=== PATIENT | male | born 1955 | race Caucasian/White ===

== ENCOUNTER 2018-06-13 10:30 | Emergency (ER) | payer BC ==
[~2018-06-13] VITALS: Ht 182.9 cm; Wt 111.6 kg
[2018-06-13 10:39] VITALS: Ht 182.9 cm; Wt 111.6 kg
[2018-06-13 15:40] VITALS: BP 157/77
== END 2018-06-13 15:40 | disposition home or self-care (01) ==
LOC: ED 10:30
DX: S61.211A Laceration without foreign body of left index finger without damage to nail, initial encounter (principal); I10 Essential (primary) hypertension; Z88.0 Allergy status to penicillin; W26.8XXA Contact with other sharp object(s), not elsewhere classified, initial encounter; Y93.89 Activity, other specified; Y92.89 Other specified places as the place of occurrence of the external cause; Y99.8 Other external cause status
CPT/HCPCS: J2001; L3999